=== PATIENT | female | born 1955 | race Two or more races ===

== ENCOUNTER 2022-05-12 07:23 | Outpatient (CLI) | payer OTHER ==
[~2022-05-12 07:23] MED LIST: TRANSFER FACTOR
== END 2022-05-12 07:25 | disposition home or self-care (01) ==
LOC: NUCLEAR 07:23
PROVIDERS: ATTEND Internal Medicine Cardiovascular Disease
DX: I20.9 Angina pectoris, unspecified (principal)
CPT/HCPCS: 78452; 93017; A9500; J0153

== ENCOUNTER 2024-01-22 15:42 | Emergency (ER) | payer OTHER ==
[~2024-01-22] VITALS: Ht 154.9 cm; Wt 65.8 kg
[2024-01-22] MEDS ORDERED: COZAAR25 MG (15:53)
[2024-01-22] MEDS ORDERED: MONTELUKAST SODI4 M1 (15:53)
[2024-01-22] MEDS ORDERED: SINVASTATIN (15:53)
[2024-01-22] MEDS ORDERED: ENDOMETRIN100 MG (15:54)
[2024-01-22] MEDS ORDERED: 0.9 % SODIUM CHLORIDE 500 ML IV ONE (16:30)
[2024-01-22 17:32] LABS: HEMATOCRIT 44.1 % (36.0-45.00); HEMOGLOBIN 14.9 g/dL (12.0-15.00); MEAN CELL VOLUME 91.7 fL (80.00-100.00); MEAN CORPUSCULAR HGB CONC 33.9 g/dl (32.0-36.0); PLATELET COUNT 274 K/uL (150-450); RED BLOOD COUNT 4.81 M/uL (4.00-6.00); RED CELL DISTRIBUTION WIDTH 13.5 % (11.5-14.5)
[2024-01-22 17:34] LABS: URINE APPEARANCE Clear; URINE BILIRRUBIN Negative (NEGATIVE); URINE BLOOD Negative; URINE COLOR Yellow; URINE GLUCOSE Negative (NEGATIVE); URINE KETONE Negative (NEGATIVE); URINE LEUKOCYTE Small; URINE NITRATE Negative; URINE PROTEIN Negative (NEGATIVE); URINE UROBILINOGEN 0.2 E.U./dl
[2024-01-22 17:35] LABS: URINE BACTERIA 221.6 uL (0.0-1933); URINE EPITHELIAL CELLS 6.4 uL (0.0-38.8); URINE RBC 9.9 uL (0.0-20.8); URINE WBC 5.7 uL (0.0-23.2)
[2024-01-22 17:42] LABS: ALBUMIN 3.3 gm/dL (3.4-5.0); BILIRUBIN TOTAL 0.32 mg/dL (0.3-1.2); CALCIUM 9.5 mg/dL (8.5-10.1); CREATININE SERUM 0.76 mg/dL (0.55-1.02); GFR 75.91; GLOBULINA 4.2 G/DL (2.4-3.5); POTASSIUM 3.82 mEq/L (3.5-5.1); TOTAL PROTEIN 7.5 gm/dL (6.4-8.2)
[2024-01-22] MEDS ORDERED: KETOROLAC TROMETHAMINE 30 MG VIAL IV ONE (22:00)
[2024-01-22] MEDS ORDERED: DICLOFENAC SODI50 MG PO (22:03)
[2024-01-22] MEDS ORDERED: KETOROLAC TROMETHAMINE 30 MG VIAL ONE (22:04)
== END 2024-01-22 22:12 | disposition home or self-care (01) ==
LOC: ER 15:42
PROVIDERS: Nurse Practitioner Family
DX: R10.2 Pelvic and perineal pain (principal); D25.9 Leiomyoma of uterus, unspecified; I10 Essential (primary) hypertension
CPT/HCPCS: 36415; 74176; 76830; 96365; 96366; 99284; J1885; J7042